=== PATIENT | male | born 1945 | race Hispanic/Latino ===

== ENCOUNTER 2016-08-05 07:23 | Day surgery (SDC) | payer MEDICARE, BC ==
[2016-08-03 14:07] VITALS: BMI 25.7
[2016-08-05] MEDS ORDERED: Lidocaine 2% Inj (20ml) ONE (07:53)
[2016-08-05] MEDS ORDERED: Iohexol 350mgl/ml 50 ML ONE (07:54)
[2016-08-05 08:12] LABS: BASO # 0.09 K/mm3 (0.0-2.0); BASO % 1.4 % (0.0-3.0); EOS # 0.3 (0.0-0.7); EOS % 3.8 % (1.5-5.0); GRAN # 3.83 (1.4-6.5); GRAN % 58.1 % (50.0-68.0); HEMOGLOBIN 14.1 gm/dL (14.0-18.0); LYMPH # 1.8 (1.2-3.4); LYMPH % 27.4 % (22.0-35.0); MEAN CELL VOLUME 87.2 fL (80.0-105.0); MEAN CORPUSCULAR HEMOGLOBIN 30.2 pg (25.0-35.0); MEAN CORPUSCULAR HGB CONC 34.6 g/dl (31.0-37.0); MONO # 0.6 (0.1-0.6); MONO % 9.3 % (1.0-6.0); PLATELET COUNT 231 10^3/uL (120.0-450.0); RBC 4.67 10^6/uL (3.5-6.1); RED CELL DISTRIBUTION WIDTH 13.4 % (11.5-14.5); WHITE BLOOD COUNT 6.6 10^3/ul (4.5-11.0)
[2016-08-05 08:21] LABS: BLOOD UREA NITROGEN 25 mg/dL (7-21); CALCIUM 9.2 mg/dL (8.4-10.5); GFR AFRICAN-AMERICAN > 60; GFR NON-AFRICAN AMERICAN > 60; HDL CHOLESTEROL 30 mg/dL (29-60); LDL CHOLESTEROL 167 mg/dL (0-129)
[2016-08-05] MEDS ORDERED: Midazolam 2 MG/2 ML VIAL ONE ×2 (08:21→08:39)
[2016-08-05 08:22] LABS: PARTIAL THROMBOPLASTIN TIME 29.8 Seconds (23.7-30.8); PROTHROMBIN TIME 10.8 Seconds (9.9-11.8)
[2016-08-05] MEDS ORDERED: Iohexol 350 MG/100 ML VIAL ONE (08:33)
[2016-08-05] MEDS ORDERED: Phenylephrine 10 mg/ml Inj ONE (08:58)
[2016-08-05] MEDS ORDERED: Sodium Chloride 0.9% 1,000 ML IV SCH (10:00)
--- NOTE | 2016-08-05 10:21 | CARD ---
APPROVED REPORT EKG Measurement Heart [id number] <Conclusion> Normal sinus rhythm Normal ECG
--- NOTE | 2016-08-05 11:47 | CARD ---
APPROVED REPORT EKG Measurement Heart [id number] [place] 212P72 [id number] <Conclusion> Sinus bradycardia with sinus arrhythmia with 1st degree AV block Otherwise normal ECG
[2016-08-05] MEDS ORDERED: Lidocaine 5% Patch TD STA (21:04)
[2016-08-06 05:51] VITALS: TEMP 98.4
[2016-08-06 08:50] LABS: BLOOD UREA NITROGEN 22 mg/dL (7-21); CALCIUM 9.4 mg/dL (8.4-10.5); GFR AFRICAN-AMERICAN > 60; GFR NON-AFRICAN AMERICAN > 60
[2016-08-06 09:47] LABS: BASO # 0.06 K/mm3 (0.0-2.0); BASO % 0.7 % (0.0-3.0); EOS # 0.3 (0.0-0.7); EOS % 3.3 % (1.5-5.0); GRAN # 5.26 (1.4-6.5); HEMOGLOBIN 15.1 gm/dL (14.0-18.0); MEAN CELL VOLUME 87.5 fL (80.0-105.0); MEAN CORPUSCULAR HGB CONC 35.4 g/dl (31.0-37.0); MEAN PLATELET VOLUME 9.5 fl (7.0-11.0); MONO # 0.6 (0.1-0.6); PLATELET COUNT 244 10^3/uL (120.0-450.0); RBC 4.87 10^6/uL (3.5-6.1); RED CELL DISTRIBUTION WIDTH 13.3 % (11.5-14.5); WHITE BLOOD COUNT 8.1 10^3/ul (4.5-11.0)
--- NOTE | 2016-08-06 10:06 | CP.PCM.CON ---
History of Present Illness - History of Present Illness History of Present Illness: Cardiology f/u 08/06/16 pt ambulating without SOB VSS lungs clear cor s1s2 ext without c/c/e labs reviewed Impressions Stable post PCI RCA w BLU multivessel CAD hypercholestermia hypertension Plan OK for dc meds reviewed w pt fu w return next wk for PCI heriberto andrews md Past Patient History - Tetanus Immunizations Tetanus Immunization: Unknown - Past Social History Smoking Status: Former Smoker - CARDIAC Hx Pacemaker: No - NEUROLOGICAL Hx Paralysis: No - HEMATOLOGICAL/ONCOLOGICAL Hx Blood Transfusions: No Hx Blood Transfusion Reaction: No - MUSCULOSKELETAL/RHEUMATOLOGICAL Hx Musculoskeletal Disorders: Yes - PSYCHIATRIC Hx Emotional Abuse: No Hx Physical Abuse: No Hx Substance Use: No - SURGICAL HISTORY Hx Surgeries: Yes - ANESTHESIA Hx Anesthesia Reactions: No Hx Malignant Hyperthermia: No Meds Allergies/Adverse Reactions: Allergies Allergy/AdvReac Type Severity Reaction Status Date / Time No Known Allergies Allergy Verified 08/03/16 14:07 - Medications Medications: Current Medications Aspirin (Ecotrin) [address] [facility] Last Admin: 08/06/16 09:41 Dose: 81 mg Atorvastatin Calcium (Lipitor) [address] [facility] Last Admin: 08/05/16 17:40 Dose: 40 mg Clopidogrel Bisulfate (Plavix) [address] [facility] Last Admin: 08/06/16 09:41 Dose: 75 mg Results - Vital Signs Recent Vital Signs: Last Vital Signs Temp 98.4 F 08/06/16 05:50 Pulse 71 08/06/16 05:50 Resp 20 08/06/16 05:50 BP 141/81 08/06/16 05:50 Pulse Ox 98 08/06/16 05:50 - Labs Result Diagrams: 08/06/16 09:30 08/06/16 07:00 Labs: Laboratory Results - last 24 hr 08/05/16 08/06/16 08/06/16 08:15 07:00 09:30 WBC 8.1 D RBC 4.87 Hgb 15.1 Hct 42.6 MCV 87.5 MCH 31.0 MCHC 35.4 RDW 13.3 Plt Count 244 MPV 9.5 Gran % 65.0 Lymph % (Auto) 24.0 [place] % (Auto) 7.0 H Eos % (Auto) 3.3 Baso % (Auto) 0.7 Gran # 5.26 Lymph # 2.0 [place] # 0.6 Eos # 0.3 Baso # 0.06 Sodium 136 Potassium 4.7 Chloride 105 Carbon Dioxide 21 Anion Gap 15 BUN 22 H Creatinine 0.9 Est GFR ( Amer) > 60 Est GFR (Non-Af Amer) > 60 Random Glucose 92 Calcium 9.4 Blood Type Confirm A POSITIVE Assessment & Plan - Date & Time Date: 08/06/16 Time: 09:00
[2016-08-06 11:24] VITALS: BP 138/81; PULSE 78; RESP 18; O2SAT 100
--- NOTE | 2016-08-06 20:15 | CARD ---
APPROVED REPORT EKG Measurement Heart [id number] [place] 184P64 [id number] <Conclusion> Normal sinus rhythm Normal ECG
== END 2016-08-06 10:00 | disposition home or self-care (01) ==
LOC: CATH 07:23 → 2RSO 09:47 → CATH 08-06 10:00
PROVIDERS: ATTEND Internal Medicine Cardiovascular Disease
DX: I25.10 Atherosclerotic heart disease of native coronary artery without angina pectoris (principal); I10 Essential (primary) hypertension; E78.00 Pure hypercholesterolemia, unspecified; Z87.891 Personal history of nicotine dependence
CPT/HCPCS: 36415 ×2; 80048 ×2; 80061; 85025 ×2; 85576; 85610; 85730; 86850; 86900; 93005; 93458; 99152; C1725; C1760; C1769 ×2; C1874; C2629; C9600; J0583; J1644; J2250; J3010; J7030; J7040; Q9967 ×2

== ENCOUNTER 2016-08-07 19:39 | Emergency (ER) | payer MEDICARE, BC ==
[2016-08-07 19:40] VITALS: BMI 25.7
[2016-08-07 19:42] VITALS: TEMP 98.9
--- NOTE | 2016-08-07 21:05 | ED PDOC ---
Arrival/HPI - General Chief Complaint: Wound Check Time Seen by Provider: 08/07/16 19:43 Historian: Patient - History of Present Illness Narrative History of Present Illness (Text): 08/07/16 20:08 Chad De Oliveira is a 71 year old male, whose past medical history includes CAD, hypercholesterolemia and prostate cancer, who presents to the ED complaining of swelling to right groin area. Patient recently had a cardiac catheterization 2 days prior with cardiac stent placement. Tonight patient noted some swelling to the right groin area. Patient became concerned can came to the ER for further evaluation as he was advised to come immediately if developed any swelling. Patient also complaining of slight tenderness to the area and notes swelling has gone down since arriving to the ER. Paient denies any nausea, vomiting, chest pain, shortness of breath, abdominal pain, or any other complaints. Inventory Analyst: Dr. Calzada Symptom Onset: Gradual Symptom Course: Unchanged Activities at Onset: Rest, Light Context: Home Past Medical History - Provider Review Nursing Documentation Reviewed: Yes - Tetanus Immunization Tetanus Immunization: Unknown - Past Medical History Past Medical History: No Previous - Cardiac Hx Pacemaker: No Other/Comment: stents - Pulmonary Hx Respiratory Disorders: No - Neurological Hx Paralysis: No - HEENT Hx HEENT Disorder: No - Renal Hx Renal Disorder: No - Endocrine/Metabolic Hx Endocrine Disorders: No - Hematological/Oncological Hx Blood Transfusions: No Hx Blood Transfusion Reaction: No - Integumentary Hx Dermatological Disorder: No - Musculoskeletal/Rheumatological Hx Musculoskeletal Disorders: Yes - Gastrointestinal Hx Gastrointestinal Disorders: No - Genitourinary/Gynecological Hx Genitourinary Disorders: No - Psychiatric Hx Emotional Abuse: No Hx Physical Abuse: No Hx Substance Use: No - Anesthesia Hx Anesthesia Reactions: No Hx Malignant Hyperthermia: No - Suicidal Assessment Feels Threatened In Home Enviroment: No Family/Social History - Physician Review Nursing Documentation Reviewed: Yes Family/Social History: Unknown Family HX Smoking Status: Former Smoker Hx Alcohol Use: Yes (OCC BEER-SEVERAL VODKA DRINKS/WEEK) Hx Substance Use: No Hx Substance Use Treatment: No Allergies/Home Meds Allergies/Adverse Reactions: Allergies No Known Allergies Allergy (Verified 08/07/16 19:42) Home Medications: Home Meds Medication Instructions Recorded Confirmed Aspirin [Adult Low Dose Aspirin EC] 81 mg PO DAILY 08/03/16 08/07/16 Cholecalciferol [Vitamin D] 3,000 iu PO DAILY 08/03/16 08/07/16 Clopidogrel [Plavix] 75 mg PO DAILY 08/03/16 08/07/16 Losartan [Cozaar] 25 mg PO QPM 08/03/16 08/07/16 Tamsulosin [Flomax] 0.4 mg PO QPM 08/03/16 08/07/16 Review of Systems - Physician Review All systems were reviewed & negative as marked: Yes - Review of Systems Constitutional: Normal. absent: Fevers Eyes: Normal ENT: Normal Respiratory: Normal. absent: SOB, Cough Cardiovascular: Normal. absent: Chest Pain Gastrointestinal: Normal. absent: Abdominal Pain, Diarrhea, Nausea, Vomiting Genitourinary Male: Normal Musculoskeletal: Other (+swelling to right groin area). absent: Back Pain, Neck Pain Skin: Normal. absent: Rash Neurological: Normal. absent: Headache, Dizziness Endocrine: Normal Hemo/Lymphatic: Normal Psychiatric: Normal Physical Exam Vital Signs Reviewed: Yes Vital Signs Temp Pulse Resp BP Pulse Ox 08/07/16 21:30 77 18 165/93 H 96 08/07/16 19:44 98.9 F 99 H 20 155/103 H 99 08/07/16 19:41 98.9 F 99 H 20 153/103 H 99 Temperature: Afebrile Blood Pressure: Normal Pulse: Regular Respiratory Rate: Normal Appearance: Positive for: Well-Appearing, Non-Toxic, Comfortable Pain Distress: None Mental Status: Positive for: Alert and Oriented X 3 - Systems Exam Head: Present: Atraumatic, Normocephalic Pupils: Present: PERRL Extroacular Muscles: Present: EOMI Conjunctiva: Present: Normal Mouth: Present: Moist Mucous Membranes Neck: Present: Normal Range of Motion Respiratory/Chest: Present: Clear to Auscultation, Good Air Exchange. No: Respiratory Distress, Accessory Muscle Use Cardiovascular: Present: Regular Rate and Rhythm, Normal S1, S2. No: Murmurs Abdomen: Present: Normal Bowel Sounds. No: Tenderness, Distention, Peritoneal Signs Upper Extremity: Present: Normal Inspection. No: Cyanosis, Edema Lower Extremity: Present: NORMAL PULSES, Normal ROM, Neurovascularly Intact, Capillary Refill < 2 s, Other (Ecchymotic hematoma to right inguinal/groin area with palpable tenderness to the area). No: Edema, Deformity, Temperature Abnormalties Neurological: Present: GCS=15, CN II-XII Intact, Speech Normal Skin: Present: Warm, Dry, Normal Color. No: Rashes Psychiatric: Present: Alert, Oriented x 3, Normal Insight, Normal Concentration Medical Decision Making ED Course and Treatment: 08/07/16 20:08 Impression: 71 year old male c/o some swelling to right groin area. Differential Diagnosis included but are not limited to: hematoma vs. pseudoaneurysm Plan: -- US Duplex Lower Extremities -- Labs -- Reassess and disposition Prior Visits: Notes and results from previous visits were reviewed. On 08/05/2016, pt underwent cardiac catheterization with stent placement. Progress Notes: 08/07/16 21:05 Reviewed sono, US Duplex Lower Extremities show no evidence of pseudoaneurysm, findings consistent with hematoma. 08/07/16 21:[address] Lin, covering for Dr. Calzada, who is aware and agrees with plan. States pt can follow-up in the office. 08/07/16 22:33 On re-evaluation, pt feels better and is no acute distress. Discussed results and plan with patient. Patient understands results and is agreeable with plan. All questions answered. Pt instructed to f/u with pavilion cutter this week and to return if he develops any new or worsening symptoms. - Lab Interpretations Lab Results: 08/07/16 21:25 Lab Results 08/07/16 21:25: WBC 8.3, RBC 4.42, Hgb 13.6 L, Hct 38.4 L, MCV 86.9, MCH 30.8, MCHC 35.4, RDW 13.4, Plt Count 229, MPV 9.2 08/07/16 21:25: PT 11.0, INR 1.02, APTT 29.2 I have reviewed the lab results: Yes - RAD Interpretation Radiology Orders: 08/07/16 20:11 DUPLEX LOWER EXTRM ARTR RIGHT [US] Stat - Medication Orders Current Medication Orders: Oxycodone/Acetaminophen (Percocet 5/325 Mg Tab) 1 tab PO STAT STA Stop: 08/07/16 22:33 - Scribe Statement The provider has reviewed the documentation as recorded by the Ilianaibe Leigh Azevedo Provider Attestation: All medical record entries made by the Scribe were at my direction and personally dictated by me. I have reviewed the chart and agree that the record accurately reflects my personal performance of the history, physical exam, medical decision making, and the department course for this patient. I have also personally directed, reviewed, and agree with the discharge instructions and disposition. Disposition/Present on Arrival - Present on Arrival Any Indicators Present on Arrival: No History of DVT/PE: No History of Uncontrolled Diabetes: No Urinary Catheter: No History of Decub. Ulcer: No History Surgical Site Infection Following: None - Disposition Have Diagnosis and Disposition been Completed?: Yes Diagnosis: Hematoma and contusion Disposition: HOME/ ROUTINE Disposition Time: 22:33 Patient Plan: Discharge Patient Problems: Current Active Problems Problem Status Onset Hematoma and contusion Acute Condition: STABLE Discharge Instructions (ExitCare): Hematoma (ED) Additional Instructions: Apply warm compresses to the affected area/avoid any strenuous physical activity /follow up with Dr.Wong narayan. Referrals: Jian Ayoub MD [Primary Care Provider] - Follow up with primary
[2016-08-07 21:44] LABS: HEMOGLOBIN 13.6 gm/dL (14.0-18.0); MEAN CELL VOLUME 86.9 fL (80.0-105.0); MEAN CORPUSCULAR HEMOGLOBIN 30.8 pg (25.0-35.0); MEAN CORPUSCULAR HGB CONC 35.4 g/dl (31.0-37.0); MEAN PLATELET VOLUME 9.2 fl (7.0-11.0); RBC 4.42 10^6/uL (3.5-6.1); RED CELL DISTRIBUTION WIDTH 13.4 % (11.5-14.5); WHITE BLOOD COUNT 8.3 10^3/ul (4.5-11.0)
[2016-08-07 22:16] LABS: INR 1.02 (0.93-1.08); PARTIAL THROMBOPLASTIN TIME 29.2 Seconds (23.7-30.8)
[2016-08-07] MEDS ORDERED: Oxycodone/Acetaminophen 5/325 mg Tab PO STA (22:32)
[2016-08-07 22:46] VITALS: BP 163/90; PULSE 75; RESP 16; O2SAT 97
--- NOTE | 2016-08-08 13:17 | US ---
PROCEDURE: Duplex arterial ultrasound of the right groin. HISTORY: Recent cardiac catheterization. Pain and pulsatile mass in the right groin. Evaluate for pseudoaneurysm or fistula. PHYSICIAN(S): Luciano Ayoub MD. FINDINGS: The right common femoral artery is patent with a normal triphasic waveform. No sonographic evidence of a pseudoaneurysm or AV fistula is seen. The right superficial femoral artery and profunda femoral artery are patent proximally. The visualized venous segments the right groin are patent and compressible. IMPRESSION: 1. No sonographic evidence for pseudoaneurysm or AV fistula in the right groin.
== END 2016-08-07 22:44 | disposition home or self-care (01) ==
LOC: ED 19:39
DX: S30.1XXA Contusion of abdominal wall, initial encounter (principal); Y84.8 Other medical procedures as the cause of abnormal reaction of the patient, or of later complication, without mention of misadventure at the time of the procedure; Y92.89 Other specified places as the place of occurrence of the external cause

== ENCOUNTER 2016-08-12 06:08 | Day surgery (SDC) | payer MEDICARE, BC ==
[2016-08-12] MEDS ORDERED: Lidocaine 2% Inj (20ml) ONE ×2 (06:21→09:12)
[2016-08-12] MEDS ORDERED: Nitroglycerin 50mg in D5W 50 MG/250 ML BOTTLE IV ONE (06:22)
[2016-08-12] MEDS ORDERED: Phenylephrine 10 mg/ml Inj ONE (06:22)
[2016-08-12] MEDS ORDERED: Iodixanol 320 MG/ML 100 ML BOTTLE IV ONE (06:22)
[2016-08-12] MEDS ORDERED: Iohexol 350mgl/ml 50 ML ONE (06:22)
[2016-08-12] MEDS ORDERED: Iodixanol 320 MG/ML 200 ML BOTTLE IV ONE (06:22)
[2016-08-12 06:47] LABS: BASO # 0.06 K/mm3 (0.0-2.0); BASO % 0.9 % (0.0-3.0); EOS # 0.4 (0.0-0.7); EOS % 6.1 % (1.5-5.0); GRAN # 3.92 (1.4-6.5); GRAN % 59.6 % (50.0-68.0); LYMPH # 1.6 (1.2-3.4); LYMPH % 24.7 % (22.0-35.0); MEAN CELL VOLUME 87.8 fL (80.0-105.0); MEAN CORPUSCULAR HEMOGLOBIN 30.5 pg (25.0-35.0); MEAN CORPUSCULAR HGB CONC 34.8 g/dl (31.0-37.0); MONO # 0.6 (0.1-0.6); MONO % 8.7 % (1.0-6.0); PLATELET COUNT 262 10^3/uL (120.0-450.0); RBC 4.26 10^6/uL (3.5-6.1); RED CELL DISTRIBUTION WIDTH 13.3 % (11.5-14.5); WHITE BLOOD COUNT 6.6 10^3/ul (4.5-11.0)
[2016-08-12 06:53] LABS: BLOOD UREA NITROGEN 18 mg/dL (7-21); CALCIUM 9.3 mg/dL (8.4-10.5); GFR AFRICAN-AMERICAN > 60; GFR NON-AFRICAN AMERICAN > 60; HDL CHOLESTEROL 31 mg/dL (29-60)
[2016-08-12 06:55] LABS: INR 1.02 (0.93-1.08); PARTIAL THROMBOPLASTIN TIME 29.8 Seconds (23.7-30.8)
[2016-08-12 07:04] LABS: LDL CHOLESTEROL 155 mg/dL (0-129)
[2016-08-12] MEDS ORDERED: Midazolam 2 MG/2 ML VIAL ONE ×2 (07:30→08:28)
[2016-08-12] MEDS ORDERED: Sodium Chloride 0.9% 1,000 ML IV SCH (10:00)
--- NOTE | 2016-08-12 14:01 | CARD ---
APPROVED REPORT EKG Measurement Heart [id number] <Conclusion> Sinus bradycardia with 1st degree AV block RVCD
--- NOTE | 2016-08-12 21:31 | CP.PCM.PN ---
Subjective - Date & Time of Evaluation Date of Evaluation: 08/12/16 Time of Evaluation: 21:15 - Subjective Subjective: Patient was seen because he had been sneezing a lot and later on he asked for a sleeping pill. Denies cp,sob,nausea, sweating, palpitations. He has no other complaints. This 71 year old white male was admitted with swelling of right groin, S/P recent cardiac catheterization. Has PMH of CAD,HLD,prostate cancer, alcohol use. Objective - Vital Signs/Intake and Output Vital Signs (last 24 hours): Temp Pulse Resp BP Pulse Ox 98.3 F 59 L 18 123/66 96 08/12/16 18:00 08/12/16 20:32 08/12/16 20:32 08/12/16 20:32 08/12/16 06:35 - Medications Medications: Current Medications Aspirin (Ecotrin) 81 mg PO DAILY [facility] Last Admin: 08/12/16 10:39 Dose: Not Given Atorvastatin Calcium (Lipitor) 40 mg PO DIN [facility] Last Admin: 08/12/16 18:01 Dose: 40 mg Clopidogrel Bisulfate (Plavix) 75 mg PO DAILY [facility] Last Admin: 08/12/16 10:39 Dose: Not Given Metoprolol Tartrate (Lopressor) 25 mg PO BID [facility] Last Admin: 08/12/16 18:00 Dose: 25 mg - Labs Labs: 08/12/16 06:35 08/12/16 06:35 PT 11.0 Seconds (9.9-11.8) 08/12/16 06:35 INR 1.02 (0.93-1.08) 08/12/16 06:35 APTT 29.8 Seconds (23.7-30.8) 08/12/16 06:35 Most Recent Lab Values WBC 6.6 10^3/ul (4.5-11.0) D 08/12/16 06:35 RBC 4.26 10^6/uL (3.5-6.1) 08/12/16 06:35 Hgb 13.0 gm/dL (14.0-18.0) L 08/12/16 06:35 Hct 37.4 % (42.0-52.0) L 08/12/16 06:35 MCV 87.8 fL (80.0-105.0) 08/12/16 06:35 MCH 30.5 pg (25.0-35.0) 08/12/16 06:35 MCHC 34.8 g/dl (31.0-37.0) 08/12/16 06:35 RDW 13.3 % (11.5-14.5) 08/12/16 06:35 Plt Count 262 10^3/uL (120.0-450.0) 08/12/16 06:35 MPV 9.0 fl (7.0-11.0) 08/12/16 06:35 Gran % 59.6 % (50.0-68.0) 08/12/16 06:35 Lymph % (Auto) 24.7 % (22.0-35.0) 08/12/16 06:35 [place] % (Auto) 8.7 % (1.0-6.0) H 08/12/16 06:35 Eos % (Auto) 6.1 % (1.5-5.0) H 08/12/16 06:35 Baso % (Auto) 0.9 % (0.0-3.0) 08/12/16 06:35 Gran # 3.92 (1.4-6.5) 08/12/16 06:35 Lymph # 1.6 (1.2-3.4) 08/12/16 06:35 [place] # 0.6 (0.1-0.6) 08/12/16 06:35 Eos # 0.4 (0.0-0.7) 08/12/16 06:35 Baso # 0.06 K/mm3 (0.0-2.0) 08/12/16 06:35 PT 11.0 Seconds (9.9-11.8) 08/12/16 06:35 INR 1.02 (0.93-1.08) 08/12/16 06:35 APTT 29.8 Seconds (23.7-30.8) 08/12/16 06:35 Sodium 138 mmol/L (132-148) 08/12/16 06:35 Potassium 4.1 mmol/L (3.6-5.0) 08/12/16 06:35 Chloride 104 mmol/L (98-107) 08/12/16 06:35 Carbon Dioxide 26 mmol/L (21-33) 08/12/16 06:35 Anion Gap 12 (10-20) 08/12/16 06:35 BUN 18 mg/dL (7-21) 08/12/16 06:35 Creatinine 0.9 mg/dL (0.5-1.4) 08/12/16 06:35 Est GFR ( Amer) > 60 08/12/16 06:35 Est GFR (Non-Af Amer) > 60 08/12/16 06:35 Random Glucose 96 mg/dL (70-110) 08/12/16 06:35 Calcium 9.3 mg/dL (8.4-10.5) 08/12/16 06:35 Triglycerides 191 mg/dL (35-160) H 08/12/16 06:35 Cholesterol 208 mg/dL (130-200) H 08/12/16 06:35 LDL Cholesterol Direct 155 mg/dL (0-129) H 08/12/16 06:35 HDL Cholesterol 31 mg/dL (29-60) 08/12/16 06:35 Blood Type A POSITIVE 08/12/16 06:35 Antibody Screen Negative 08/12/16 06:35 BBK History Checked Patient has bt 08/12/16 06:35 - Constitutional Appears: Well, No Acute Distress - Head Exam Head Exam: ATRAUMATIC, NORMAL INSPECTION, NORMOCEPHALIC - Eye Exam Eye Exam: Normal appearance - ENT Exam ENT Exam: Normal External Ear Exam - Neck Exam Neck Exam: Normal Inspection - Respiratory Exam Respiratory Exam: NORMAL BREATHING PATTERN - Cardiovascular Exam Cardiovascular Exam: absent: JVD - GI/Abdominal Exam GI & Abdominal Exam: absent: Distended - Rectal Exam Rectal Exam: Deferred - Exam Additional comments: Above deferred. - Extremities Exam Extremities Exam: Normal Inspection Additional comments: Left groin dressing clean and dry. - Back Exam Back Exam: NORMAL INSPECTION - Neurological Exam Neurological Exam: Alert, Oriented x3 - Psychiatric Exam Psychiatric exam: Normal Affect, Normal Mood - Skin Skin Exam: Normal Color Assessment and Plan - Assessment and Plan (Free Text) Assessment: Sneezing. Allergic Rhinitis. Adjustment insomnia. CAD. HLD. Prostate cancer. Plan: Claritin 10 mg po once. Ambien 5 mg po once. Continue present medications.
[2016-08-13 06:28] VITALS: O2SAT 96
[2016-08-13 07:25] LABS: BASO # 0.04 K/mm3 (0.0-2.0); BASO % 0.5 % (0.0-3.0); EOS # 0.3 (0.0-0.7); EOS % 3.7 % (1.5-5.0); GRAN % 71.5 % (50.0-68.0); HEMOGLOBIN 12.2 gm/dL (14.0-18.0); LYMPH # 1.2 (1.2-3.4); LYMPH % 15.3 % (22.0-35.0); MEAN CELL VOLUME 87.6 fL (80.0-105.0); MEAN CORPUSCULAR HEMOGLOBIN 30.2 pg (25.0-35.0); MEAN CORPUSCULAR HGB CONC 34.5 g/dl (31.0-37.0); MONO # 0.7 (0.1-0.6); PLATELET COUNT 236 10^3/uL (120.0-450.0); RBC 4.04 10^6/uL (3.5-6.1); RED CELL DISTRIBUTION WIDTH 13.1 % (11.5-14.5); WHITE BLOOD COUNT 8.1 10^3/ul (4.5-11.0)
[2016-08-13 07:37] LABS: BLOOD UREA NITROGEN 19 mg/dL (7-21); GFR AFRICAN-AMERICAN > 60; GFR NON-AFRICAN AMERICAN > 60
--- NOTE | 2016-08-13 10:11 | CARD ---
APPROVED REPORT EKG Measurement Heart [id number] 190P67 [id number] <Conclusion> Normal sinus rhythm with 1st degree AVB LVH by voltage No change
[2016-08-13 11:43] VITALS: TEMP 98
--- NOTE | 2016-08-13 13:11 | CP.PCM.CON ---
History of Present Illness - History of Present Illness History of Present Illness: 71 y/o male h/o CAD S/p PCI to prox. LAD yesterday H/o Rt. Groin hematoma from an earlier intervention last week No chest pain or SOB C/O of Rt. groin pain H/o Prostatic Ca and ETOH Past Patient History - Tetanus Immunizations Tetanus Immunization: Unknown - Past Social History Smoking Status: Former Smoker - CARDIAC Hx Pacemaker: No - PULMONARY Hx Respiratory Disorders: No - NEUROLOGICAL Hx Paralysis: No - HEENT Hx HEENT Problems: No - RENAL Hx Chronic Kidney Disease: No - ENDOCRINE/METABOLIC Hx Endocrine Disorders: No - HEMATOLOGICAL/ONCOLOGICAL Hx Blood Transfusions: No Hx Blood Transfusion Reaction: No - INTEGUMENTARY Hx Dermatological Problems: No - MUSCULOSKELETAL/RHEUMATOLOGICAL Hx Musculoskeletal Disorders: Yes - GASTROINTESTINAL Hx Gastrointestinal Disorders: No - GENITOURINARY/GYNECOLOGICAL Hx Genitourinary Disorders: No - PSYCHIATRIC Hx Emotional Abuse: No Hx Physical Abuse: No Hx Substance Use: No - SURGICAL HISTORY Hx Surgeries: Yes - ANESTHESIA Hx Anesthesia Reactions: No Hx Malignant Hyperthermia: No Meds Allergies/Adverse Reactions: Allergies Allergy/AdvReac Type Severity Reaction Status Date / Time No Known Allergies Allergy Verified 08/13/16 11:55 - Medications Medications: Current Medications Aspirin (Ecotrin) 81 mg PO DAILY [facility] Last Admin: 08/13/16 10:45 Dose: 81 mg Atorvastatin Calcium (Lipitor) 40 mg PO DIN [facility] Last Admin: 08/12/16 18:01 Dose: 40 mg Clopidogrel Bisulfate (Plavix) 75 mg PO DAILY [facility] Last Admin: 08/13/16 10:44 Dose: 75 mg Metoprolol Tartrate (Lopressor) 25 mg PO BID [facility] Last Admin: 08/13/16 10:44 Dose: 25 mg Physical Exam - Head Exam Head Exam: NORMOCEPHALIC - Eye Exam Eye Exam: Normal appearance - ENT Exam ENT Exam: Normal Exam - Neck Exam Neck exam: Positive for: Normal Inspection - Respiratory Exam Respiratory Exam: NORMAL BREATHING PATTERN - Cardiovascular Exam Cardiovascular Exam: REGULAR RHYTHM - GI/Abdominal Exam GI & Abdominal Exam: Normal Bowel Sounds - Extremities Exam Additional comments: Rt. groin bruit Results - Vital Signs Recent Vital Signs: Last Vital Signs Temp 98 F 08/13/16 11:41 Pulse 67 08/13/16 11:41 Resp 18 08/13/16 11:41 BP 132/77 08/13/16 11:41 Pulse Ox 96 08/13/16 06:00 - Labs Result Diagrams: 08/13/16 07:20 08/13/16 07:22 Labs: Laboratory Results - last 24 hr 08/13/16 08/13/16 07:20 07:22 WBC 8.1 D RBC 4.04 Hgb 12.2 L Hct 35.4 L MCV 87.6 MCH 30.2 MCHC 34.5 RDW 13.1 Plt Count 236 MPV 9.0 Gran % 71.5 H Lymph % (Auto) 15.3 L [place] % (Auto) 9.0 H Eos % (Auto) 3.7 Baso % (Auto) 0.5 Gran # 5.80 Lymph # 1.2 [place] # 0.7 H Eos # 0.3 Baso # 0.04 Sodium 138 Potassium 4.2 Chloride 105 Carbon Dioxide 24 Anion Gap 13 BUN 19 Creatinine 0.9 Est GFR ( Amer) > 60 Est GFR (Non-Af Amer) > 60 Random Glucose 99 Calcium 9.0 Assessment & Plan - Assessment and Plan (Free Text) Assessment: CAD s/p PCI to RCA R/o Rt. Groin pseudo aneurysm Prostatic CA Plan: Cont Aspirin (Ecotrin) 81 mg PO DAILY [facility] Last Admin: 08/13/16 10:45 Dose: 81 mg Atorvastatin Calcium (Lipitor) 40 mg PO DIN [facility] Last Admin: 08/12/16 18:01 Dose: 40 mg Clopidogrel Bisulfate (Plavix) 75 mg PO DAILY [facility] Last Admin: 08/13/16 10:44 Dose: 75 mg Metoprolol Tartrate (Lopressor) 25 mg PO BID [facility] Last Admin: 08/13/16 10:44 Dose: 25 mg Repeat Duplex scan to Rt. Groin to r/o pseudo aneurysm(+ve Bruit)
[2016-08-13] MEDS ORDERED: Pneumococcal 23-Valent Vaccine IM ONE (14:39)
--- NOTE | 2016-08-13 16:19 | US ---
PROCEDURE: Duplex arterial ultrasound of the right groin. HISTORY: Recent cardiac catheterization. Pain and pulsatile mass in the right groin. Evaluate for pseudoaneurysm or fistula. PHYSICIAN(S): Luciano Ayoub MD. FINDINGS: The right common femoral artery is patent with a normal triphasic waveform. No sonographic evidence of a pseudoaneurysm or AV fistula is seen. The right superficial femoral artery and profunda femoral artery are patent proximally. The visualized venous segments the right groin are patent and compressible. A small ro moderate right groin hematoma seen. IMPRESSION: 1. No sonographic evidence for pseudoaneurysm or AV fistula in the right groin.
[2016-08-13 16:58] VITALS: BP 162/81; PULSE 64; RESP 20
--- NOTE | 2016-08-20 13:35 | PCM.OP ---
Operative Report - Operative Report Date of Surgery/Procedure: 08/12/16 Time of Surgery/Procedure: 10:00 Surgeon: Dr. Luciano Calzada Anesthesia/Sedation: versad Pre-Operative Diagnosis: unstable angina Post-Operative Diagnosis: same Indication for Surgery: unstable angina Operative Findings: see report Procedure/Operation Description: The left femoral artery is cannulated with a 6 romanian sheath. There were no complications. To find these uncatherization reveal the pain stents in the proximal RCA that was placed last week. His coronary anatomy revealed an unremarkable left main artery. Theres an 80% ostial /proximal LAD stenosis. The patient started on intravenous angiomax. On the fluroscopic guide, the guiding catheter was placed in the ostium of the left main artery. An 0.014 ATW wire was placed in the LAD past critical stenosis. A 2.5 x 8 mm drug-eluting stent was placed and deployed. At 10 atmosphere pressure in the approximate LAD lesion. Repeat coronarography with next one result with no residual stenosis in ILIANA 3 flow. Manual compression will be used to close the femoral artery site due to his peripheral vascular disease. The patient tolerated the procedure well. In summary, the procedure was successful PTC in stent of a proxima LAD stenosis with a drug-eluting stent. Coronarography revealed a pain stent in the proximal RCA as well in the LAD stenosis. Estimated Blood Loss: 0 Complications: none Discharge & Condition: to telemetry
== END 2016-08-13 18:50 | disposition home or self-care (01) ==
LOC: CATH 06:08 → 2RSO 09:54 → CATH 08-13 12:00 → 2RSO 08-13 12:00 → UNDOADMIN 08-13 12:00 → UNDODISIN 08-13 18:50 → CATH 08-13 18:50
PROVIDERS: ATTEND Internal Medicine Cardiovascular Disease
DX: I25.10 Atherosclerotic heart disease of native coronary artery without angina pectoris (principal); E78.00 Pure hypercholesterolemia, unspecified; L76.32 Postprocedural hematoma of skin and subcutaneous tissue following other procedure; Y84.0 Cardiac catheterization as the cause of abnormal reaction of the patient, or of later complication, without mention of misadventure at the time of the procedure; Z87.891 Personal history of nicotine dependence; C61 Malignant neoplasm of prostate; E78.5 Hyperlipidemia, unspecified; Z72.89 Other problems related to lifestyle; J30.9 Allergic rhinitis, unspecified; F51.02 Adjustment insomnia; I73.9 Peripheral vascular disease, unspecified
CPT/HCPCS: 36415 ×2; 80048 ×2; 80061; 85025 ×2; 85610; 85730; 86850; 86900; 93005 ×2; 93454; 93926; 99152; C1769 ×2; C1874; C1887; C1894; C2629; C9600; J0583; J1644; J2250; J3010; J7040; Q9967

== ENCOUNTER 2017-02-09 06:24 | Day surgery (SDC) | payer MEDICARE, BC ==
[2017-01-31 12:58] VITALS: BMI 26.1
[2017-02-09] MEDS ORDERED: Propofol 10 mg/ml Inj (20 ML) ONE (07:55)
[2017-02-09] MEDS ORDERED: Midazolam 2 MG/2 ML VIAL ONE (07:56)
[2017-02-09] MEDS ORDERED: Phenylephrine 10 mg/ml Inj ONE (07:59)
[2017-02-09] MEDS ORDERED: Succinylcholine 200 mg/10 ml Inj IV ONE (08:02)
[2017-02-09] MEDS ORDERED: Etomidate 40 MG/20 ML ML IV ONE (08:02)
[2017-02-09] MEDS ORDERED: Sodium Chloride 0.9% 1,000 ML IV SCH (08:45)
[2017-02-09 10:05] VITALS: BP 140/86; PULSE 61; RESP 19; TEMP 97.6; O2SAT 98
== END 2017-02-09 10:40 | disposition home or self-care (01) ==
LOC: ENDO 06:24
PROVIDERS: ATTEND Specialist
DX: Z12.11 Encounter for screening for malignant neoplasm of colon (principal); K25.4 Chronic or unspecified gastric ulcer with hemorrhage; K44.9 Diaphragmatic hernia without obstruction or gangrene; K64.8 Other hemorrhoids; I25.10 Atherosclerotic heart disease of native coronary artery without angina pectoris; I10 Essential (primary) hypertension; E78.5 Hyperlipidemia, unspecified; M19.90 Unspecified osteoarthritis, unspecified site; Z87.81 Personal history of (healed) traumatic fracture; Z98.61 Coronary angioplasty status
CPT/HCPCS: 43235; 45378; J0330; J2001; J2250; J2370; J2704; J7040 ×2